=== PATIENT | male | born 1985 | race Caucasian/White ===

== ENCOUNTER 2022-05-07 14:48 | Emergency (ER) | payer BC ==
[2022-05-07] MEDS ORDERED: Acetaminophen 500 MG TAB ONE (15:44)
[2022-05-07] MEDS ORDERED: Ketorolac Tromethamine 30 MG/ML VIAL ONE (15:44)
[2022-05-07] MEDS ORDERED: Lidocaine 1% w/Epinephrine 1:100K 20 ML VIAL ONE (17:11)
[2022-05-07] MEDS ORDERED: Bacitracin 1 PK ONE (17:44)
== END 2022-05-07 17:58 | disposition short-term general hospital (02) ==
LOC: ERS 14:48
DX: S61.012A Laceration without foreign body of left thumb without damage to nail, initial encounter (principal); W31.2XXA Contact with powered woodworking and forming machines, initial encounter
CPT/HCPCS: 12004; 96372; J1885

== ENCOUNTER 2022-06-08 08:14 | Day surgery (SDC) | payer BC ==
[2022-06-07 11:20] VITALS: BMI 25.7
[2022-06-08] MEDS ORDERED: Lidocaine 1% MPF 2 ML VIAL ONE (08:47)
[2022-06-08] MEDS ORDERED: Sodium Chloride 0.9% 100 ML ONE (08:47)
[2022-06-08] MEDS ORDERED: CEFAZOLIN 2 GM VIAL ONE (08:47)
[2022-06-08] MEDS ORDERED: Bupivacaine/Epinephrine 0.25% 30 ML VIAL ONE (11:02)
[2022-06-08] MEDS ORDERED: Fentanyl 250 MCG/5 ML VIAL ONE (11:03)
[2022-06-08] MEDS ORDERED: SUGAMMADEX SODIUM 200 MG/2 ML VIAL ONE (11:04)
[2022-06-08] MEDS ORDERED: Lidocaine 2% 6 ML SYR ONE (11:04)
[2022-06-08] MEDS ORDERED: Glycopyrrolate 0.2 MG/ML 5 ML SYRINGE ONE (11:17)
[2022-06-08] MEDS ORDERED: PROPOFOL 200 MG/20 ML VIAL ONE (11:17)
[2022-06-08] MEDS ORDERED: Ketorolac Tromethamine 30 MG/ML VIAL ONE (11:17)
[2022-06-08] MEDS ORDERED: ePHEDrine 50 MG/ML VIAL ONE (11:17)
[2022-06-08] MEDS ORDERED: Rocuronium Bromide 10 MG/ML (10ML VIAL) ONE (11:17)
[2022-06-08] MEDS ORDERED: Ondansetron PF 4 MG/2 ML Vial ONE (11:17)
[2022-06-08] MEDS ORDERED: Dexamethasone 20 MG/5 ML VIAL ONE (11:17)
[2022-06-08] MEDS ORDERED: NEOSTIGMINE 3 MG/3 ML SYR 3 MG/3 ML SYRINGE ONE (11:17)
[2022-06-08] MEDS ORDERED: Fentanyl 100 MCG/2 ML VIAL ONE ×2 (12:39→12:58)
[2022-06-08] MEDS ORDERED: HYDROcodone/Acetaminophen 5/325 mg Tablet ONE ×2 (13:50)
[2022-06-08] MEDS ORDERED: Promethazine HCl 25 MG/ML VIAL ONE (14:29)
== END 2022-06-08 14:55 | disposition home or self-care (01) ==
LOC: SDC 08:14
PROVIDERS: ATTEND Surgery
DX: K40.20 Bilateral inguinal hernia, without obstruction or gangrene, not specified as recurrent (principal); I49.3 Ventricular premature depolarization
CPT/HCPCS: C1781; J1100; J1885; J2405; J2550; J2704; J3010; J3490